=== PATIENT | male | born 1995 | race Two or more races ===

== ENCOUNTER 2023-12-28 09:31 | Emergency (ER) | payer SELFPAY ==
[2023-12-28] VITALS (7 sets, daily range): BP systolic 114–124; BP diastolic 80–89; PULSE 58–74; RESP 18; TEMP 36.7; O2SAT 98–99; BMI 28.1
--- NOTE | 2023-12-28 10:07 | CT_ITS ---
FINAL REPORT CLINICAL HISTORY: trauma FINDINGS: Axial imaging of the lumbar spine was obtained without contrast. Sagittal and coronal reformatted images were also obtained and reviewed.This study was performed with techniques to keep radiation doses as low as reasonably achievable (ALARA). Individualized dose reduction techniques using automated exposure control or adjustment of mA and/or kV according to the patient''s size were employed. There is no fracture. The vertebral alignment is normal. The disc spaces are preserved. There is no evidence of significant central canal stenosis. IMPRESSION: No fracture or acute bony abnormality identified. Authenticated and ERN
--- NOTE | 2023-12-28 10:07 | CT_ITS ---
FINAL REPORT CLINICAL HISTORY: trauma FINDINGS: A CT angiogram of the abdomen and pelvis was performed with IV contrast. Sagittal and coronal reformatted images were also obtained. This study was performed with techniques to keep radiation doses as low as reasonably achievable (ALARA). Individual dose reduction techniques using automated exposure control or adjustment of mA and/or kV according to the patient's size were employed. The abdominal aorta has an unremarkable appearance without evidence of aneurysm or dissection. The celiac axis, superior mesenteric artery and inferior mesenteric artery have an unremarkable appearance. The iliac arteries are normal. The renal arteries have an unremarkable appearance. The liver, spleen and pancreas are unremarkable. There is no evidence of renal mass or hydronephrosis. No abnormal fluid collection is seen. There is no evidence of organ injury or hemoperitoneum. IMPRESSION: Unremarkable CT angiogram of the abdomen and pelvis. No evidence of organ injury or hemoperitoneum. Authenticated and ERN
--- NOTE | 2023-12-28 10:07 | CT_ITS ---
FINAL REPORT CLINICAL HISTORY: trauma FINDINGS: Axial CT images of the thoracic spine were obtained without contrast. Sagittal and coronal reformatted images were also obtained. This study was performed with techniques to keep radiation doses as low as reasonably achievable (ALARA). Individualized dose reduction techniques using automated exposure control or adjustment of mA and/or kV according to the patient''s size were employed. There is no evidence of fracture. The vertebral alignment is normal. There is no evidence of significant canal stenosis. No paraspinous soft tissue abnormality is identified. IMPRESSION: No fracture or acute bony abnormality. No significant central canal stenosis. Authenticated and ERN
--- NOTE | 2023-12-28 10:07 | CT_ITS ---
FINAL REPORT CLINICAL HISTORY: trauma FINDINGS: Axial CT images of the cervical spine were obtained without contrast. Sagittal and coronal reformatted images were also obtained. This study was performed with techniques to keep radiation doses as low as reasonably achievable (ALARA). Individualized dose reduction techniques using automated exposure control or adjustment of mA and/or kV according to the patient''s size were employed. There is no evidence of fracture or dislocation. The bony alignment is normal. The disc spaces are preserved. There is no evidence of canal stenosis. No paraspinous soft tissue abnormality is seen. Limited images of the upper thorax are unremarkable. IMPRESSION: No fracture or acute bony abnormality identified. Authenticated and ERN
--- NOTE | 2023-12-28 10:07 | CT_ITS ---
FINAL REPORT CLINICAL HISTORY: trauma FINDINGS: Thin section axial CT images of the chest were obtained with contrast. 3D reformatted images were also obtained. This study was performed with techniques to keep radiation doses as low as reasonably achievable (ALARA). Individualized dose reduction techniques using automated exposure control or adjustment of mA and/or kV according to the patient''s size were employed. There is no evidence of pulmonary embolism. There is no evidence of thoracic aortic aneurysm or dissection. There is no evidence of mediastinal or hilar mass or adenopathy. There is no evidence of pulmonary mass or nodule. No localized inflammatory process is seen within the lungs. There is no evidence of pneumothorax. No pleural effusion is identified. No displaced rib fracture is seen. IMPRESSION: No evidence of pulmonary embolism. No evidence of traumatic injury. Authenticated and ERN
--- NOTE | 2023-12-28 10:07 | CT_ITS ---
FINAL REPORT CLINICAL HISTORY: trauma FINDINGS: Axial images of the head were obtained without contrast. Coronal reformatted images were also obtained.This study was performed with techniques to keep radiation doses as low as reasonably achievable (ALARA). Individualized dose reduction techniques using automated exposure control or adjustment of mA and/or kV according to the patient's size were employed. There is no evidence of intracranial hemorrhage or mass. The ventricular size is within normal limits. There is no evidence of shift of the midline structures. No abnormal extra axial fluid collection is identified. No skull abnormality is seen on the bone window images. IMPRESSION: No acute intracranial abnormality. Authenticated and ERN
--- NOTE | 2023-12-28 10:11 | XR_ITS ---
FINAL REPORT TECHNIQUE: 2 views left scapula CLINICAL HISTORY: pain COMPARISON: None FINDINGS: LEFT SCAPULA: 2 views of the left scapula fail to reveal any evidence of fracture or dislocation. The glenohumeral and acromioclavicular joints appear unremarkable. No radiopaque foreign body is identified. IMPRESSION: Unremarkable left scapula. Reviewed, Interpreted and Dictated by Romel Banks III, MD Transcribed by Cornelia Addison Authenticated and [facility]
--- NOTE | 2023-12-28 10:13 | PC.NURSE ---
0935 LEGAL ADVISOR USE FOR TRIAGE, TO ASSESS AND ENTIRE COMMUNICATION WITH THE PT
--- NOTE | 2023-12-28 10:14 | PC.NURSE ---
DELAY IN SCAN TIME DUE TO MULTIPLE TRAUMA ALERTS AT ONE TIME
[2023-12-28 10:16] LABS: Basophils % 0.9 % (0.1-2.0); Eosinophils # 0.1 K/mm3 (0.0-0.4); Eosinophils % 1.6 % (0.1-12.0); Hematocrit 50.2 % (42.0-52.0); Hemoglobin 15.8 g/dL (14.1-18.0); Lymphocytes # 1.6 K/mm3 (0.7-4.5); Lymphocytes % 38.5 % (10-50); Mean Corpuscular HGB Conc 31.5 g/dL (31.8-35.4); Mean Corpuscular Hemoglobin 30.4 pg (27.0-31.2); Mean Corpuscular Volume 96.8 fl (80-94); Mean Platelet Volume 8.1 fl (7.4-10.4); Monocytes # 0.3 K/mm3 (0.1-1.0); Monocytes % 6.8 % (1.7-9.3); Neutrophils # 2.2 K/mm3 (1.8-7.8); Neutrophils % 52.2 % (37.0-80.0); Platelet Count 250 K/mm3 (142-424); Red Blood Count 5.19 M/mm3 (4.60-6.20); Red Cell Distribution Width 13.9 % (11.5-17.5); White Blood Count 4.1 K/mm3 (4.8-10.8)
[2023-12-28] MEDS: MORPHINE 4MG/ML SYRINGE 4 MG IV (10:16)
[2023-12-28] MEDS: ONDANSETRON 4MG/2ML VIAL 4 MG IV (10:16)
[2023-12-28 10:19] LABS: Chloride 106 mmol/L (98-107)
[2023-12-28 10:20] LABS: Albumin Level 4.3 g/dl (3.5-5.0); Potassium 3.8 mmoL/L (3.5-5.1); Sodium 137 mmol/L (136-145)
[2023-12-28 10:22] LABS: Blood Urea Nitrogen 16 mg/dl (9-20); Creatinine Clearance Estimated 139 mL/min (50-200); Estimated Glomerular Filt Rate 99 ml/min (>60); GFR (African American) 120 ML/MIN (>60)
[2023-12-28 10:23] LABS: Alanine Aminotransferase 29 U/L (12-78); Albumin/Globulin Ratio 1.4 (1.1-1.8); Alkaline Phosphatase 86 U/L (38-126); Anion Gap 6.8 mEq/L (5-15); Aspartate Amino Transferase 34 U/L (17-59); Bilirubin,Total 0.9 mg/dl (0.2-1.3); Carbon Dioxide 28 mmol/L (22.0-30.0); Globulin 3.1 g/dL (1.3-3.2); Glucose 93 mg/dl (74-100); INR 1.02 (0.9-1.1); Prothrombin Time 11.4 seconds (10.1-12.5); Total Protein,Serum 7.4 g/dl (6.3-8.2)
--- NOTE | 2023-12-28 10:29 | PC.NURSE ---
FAST EXAM NEGATIVE
[2023-12-28] MEDS: IOPAMIDOL-370 (76%);100ML BOTTLE 80 ML IV (10:54)
[2023-12-28] MEDS: 0.9 % SODIUM CHLORIDE 50 ML VIAL IV (10:54)
--- NOTE | 2023-12-28 12:02 | PC.NURSE ---
TRAUMA ALERT CANCELLED
[2023-12-28] MEDS: TET/DIPHTH/PERT-ADULT 0.5ML SYRINGE 0.5 ML IM (12:11)
--- NOTE | 2023-12-28 12:26 | HMH.EDGENADL ---
Discharge Plan Disposition Patient Disposition: Home, Self-Care Condition: Good Prescriptions Prescriptions: New methocarbamol 500 mg tablet 500 mg PO TID PRN (Reason: pain) 3 Days Qty: 15 0RF acetaminophen [Tylenol Extra Strength] 500 mg tablet 1,000 mg PO Q6H PRN (Reason: pain) 3 Days Qty: 20 0RF ibuprofen [IBU] 600 mg tablet 600 mg PO Q6H PRN (Reason: pain) 3 Days Qty: 14 0RF bacitracin 500 unit/gram ointment 1 applic topical BID Qty: 28 0RF Referrals Follow up/Referrals: Provider,Referral, MD [Primary Care Provider] - See instructions Activity Restrictions/Add. Instructions Additional Instructions/Restrictions: You have been evaluated in the ED for your complaints. You may follow-up with your PCP in the next 3 to 5 days. Please return to ED for any new or worsening symptoms. Please take Robaxin, Tylenol and ibuprofen as needed. You may apply bacitracin or Neosporin ointment over your abrasion. Clinical Impressions Clinical Impression: Fall, Back pain, Abrasion Print Language Print Language: Moroccan Discharge ED Provider: Xavi Beaulieu Adult HPI General Stated complaint: WC 12/27 Abrasions Time Seen by Provider: 12/28/23 09:51 Mode of Arrival: Ambulatory Limitations: No Limitations Description of Symptoms (Recalled from ER Triage Doc. by RN): PT AMBULATORY TO ED, PT ABOUT 10 FEET IN [employer]ING TOBACCO, BARN COLLAPSED. FALL FROM ABOUT 10 FEET. C/O LEFT ARM AND LEFT SIDED RIB PAIN. BRUISING AND ABRASIONS NOTED. PT DENIES NECK PAIN, PLACED IN C-COLLAR. [employer] ADVISER USED FOR ALL INFORMATION History of Present Illness HPI narrative: 28-year-old male with no pertinent past medical history presents today as a trauma after having anywhere from a 10-20ft fall after a tobacco barn collapsed. He fell onto his left side and complains of pain in that area. He also complains of thoracic pain. Denies neck pain. Denies any chest pain, abdominal pain, head injuries, loss of consciousness, nausea, vomiting, extremity pain or any other associated symptoms. He has been ambulatory since the event. Tetanus is not up-to-date. No further complaints Related Data Previous Rx's ?Medication ?Instructions ?Recorded acetaminophen 500 mg tablet 1,000 mg (2 x 500 mg) PO Q6H PRN 12/28/23 (Tylenol Extra Strength) pain 3 days #20 tabs bacitracin 500 unit/gram topical 1 applic topical BID #28 grams 12/28/23 ointment ibuprofen 600 mg tablet (IBU) 600 mg PO Q6H PRN pain 3 days #14 12/28/23 tabs methocarbamol 500 mg tablet 500 mg PO TID PRN pain 3 days #15 12/28/23 tabs Allergies Allergy/AdvReac Type Severity Reaction Status Date / Time No Known Allergies Allergy Verified 12/28/23 09:44 [facility] Disclaimer: The information contained in this section may have been updated after the patient was seen, as this information can be updated by other users. Social History Smoking Status: Never smoker alcohol intake: never current occupational status: employed Travel in the last 8 weeks: None ROS Obtained: Yes All systems reviewed & no additional complaints except as documented Physical Exam General General appearance: alert and in no apparent distress Head Head exam: atraumatic and normocephalic Eye Eye exam: Present normal appearance, PERRL and EOMI ENT ENT exam: Present normal oropharynx and mucous membranes moist Neck Neck exam: Present full ROM; Absent tenderness or meningismus Chest Chest inspection: Present normal inspection; Absent tenderness Respiratory Respiratory exam: Absent respiratory distress, wheezes, stridor or accessory muscle use Cardiovascular Cardiovascular exam: Present regular rate and normal rhythm Abdominal Exam Abdominal exam: Present soft and other (Large linear abrasion on the left lateral aspect of the abdomen. No active bleeding.); Absent distention, tenderness, guarding, rebound or rigidity Back Exam Back exam: Present tenderness (Midthoracic tenderness to palpation.) Neurological Exam Neurological exam: Present alert, oriented X3 and CN II-XII intact; Absent motor sensory deficit Psychiatric Psychiatric exam: Present normal affect and normal mood Skin Skin exam: Present warm and dry Medical Decision Making Medical Records Medical records reviewed: Yes I reviewed the patient's medical records. Kiran Inquiry Pt receiving controlled substance: No Kiran was queried for this patient: No Vital Signs: 12/28/23 09:35 12/28/23 10:00 12/28/23 10:30 Temperature 98.0 F Temperature Source Oral Pulse Rate 66 60 Pulse Rate [Apical] 74 Respiratory Rate 18 18 Blood Pressure 115/82 124/89 Blood Pressure [Right Arm] 122/80 Blood Pressure Mean 89 Blood Pressure Mean [Right Arm] 94 Blood Pressure Source [Right Arm] Manual Cuff/ Auscultation Blood Pressure Position [Right Arm] Sitting 02 Sat by Pulse Oximetry 99 98 99 Oxygen Delivery Method Room Air Room Air Room Air 12/28/23 11:30 12/28/23 12:00 12/28/23 12:15 Temperature Temperature Source Pulse Rate 58 L 58 L 58 L Pulse Rate [Apical] Respiratory Rate Blood Pressure 116/80 114/82 114/82 Blood Pressure [Right Arm] Blood Pressure Mean 89 91 Blood Pressure Mean [Right Arm] Blood Pressure Source [Right Arm] Blood Pressure Position [Right Arm] 02 Sat by Pulse Oximetry 99 99 99 Oxygen Delivery Method Room Air Room Air Lab Data Lab Results 12/28/23 09:45: WBC 4.1 L, RBC 5.19, Hgb 15.8, Hct 50.2, MCV 96.8 H, MCH 30.4, MCHC 31.5 L, RDW 13.9, Plt Count 250, MPV 8.1, Neut % (Auto) 52.2, Lymph % (Auto) 38.5, [place] % (Auto) 6.8, Eos % (Auto) 1.6, Baso % (Auto) 0.9, Neut # (Auto) 2.2, Lymph # (Auto) 1.6, [place] # (Auto) 0.3, Eos # (Auto) 0.1, Baso # (Auto) 0.0, PT 11.4, INR 1.02, Sodium 137, Potassium 3.8, Chloride 106, Carbon Dioxide 28, Anion Gap 6.8, BUN 16, Creatinine 0.90, Estimated Creat Clear 139, Estimated GFR 99, Est GFR ( Amer) 120, Glucose 93, Calcium 9.0, Total Bilirubin 0.9, AST 34, ALT 29, Alkaline Phosphatase 86, Total Protein 7.4, Albumin 4.3, Globulin 3.1, Albumin/Globulin Ratio 1.4 12/28/23 09:45 12/28/23 09:45 Orders (Tests/Meds): ED MEDICATIONS Generic Name Dose Route Start Last Admin Trade Name Freq PRN Reason Stop Dose Admin Sodium Chloride 10 ml 12/28/23 10:53 Sodium Chloride 0.9% 10ml Syr (Rad Only) IV 01/27/24 10:52 NEEDED PRN Maintain IV Site Discontinued Medications Generic Name Dose Route Start Last Admin Trade Name Alessandro PRN Reason Stop Dose Admin Iopamidol 80 ml 12/28/23 10:53 12/28/23 10:54 Iopamidol-370 (76%);100ml Bottle IV 12/28/23 10:54 80 ml ONCE ONE Administration Morphine Sulfate 4 mg 12/28/23 10:11 12/28/23 10:16 Morphine 4mg/Ml Syringe IV 12/28/23 10:12 4 mg ONCE ONE Administration Ondansetron HCl 4 mg 12/28/23 10:11 12/28/23 10:16 Ondansetron 4mg/2ml Vial IV 12/28/23 10:12 4 mg ONCE ONE Administration Sodium Chloride 50 ml 12/28/23 10:53 12/28/23 10:54 0.9 % Sodium Chloride 50 Ml Vial IV 12/28/23 10:54 50 ml ONCE ONE Administration Tetanus/Diphtheria Toxoids 0.5 ml 12/28/23 10:36 12/28/23 12:08 Tetanus-Diphth Toxoid, Adult 0.5ml Syr IM 12/28/23 10:37 Not Given .ONCE ONE Tetanus/Reduced Diphtheria/Acell Pertussis 0.5 ml 12/28/23 12:07 12/28/23 12:11 Tet/Diphth/Pert-Adult 0.5ml Syringe IM 12/28/23 12:08 0.5 ml .ONCE ONE Administration ORDERS Category Date Time Status CT angio abdomen pelvis Stat Cat Scan 12/28/23 10:[address] cervical spine wo con Stat Cat Scan 12/28/23 10:[address] head/brain wo con Stat Cat Scan 12/28/23 10:[address] lumbar spine wo con Stat Cat Scan 12/28/23 10:[address] thoracic spine wo con Stat Cat Scan 12/28/23 10:07 Completed CTA Chest [CT angio chest - dissection] Stat Cat Scan 12/28/23 10:07 Completed POCUS Point of Care (ER Only) Stat Exams 12/28/23 09:44 Completed Scapula XR left [XR scapula LT] Stat Exams 12/28/23 10:11 Completed Complete Blood Count Auto Diff Stat Lab 12/28/23 09:45 Completed Comprehensive Metabolic Panel Stat Lab 12/28/23 09:45 Completed PT/INR [Prothrombin Time INR] Stat Lab 12/28/23 09:45 Completed Medical Decision Narrative: 28-year-old male with no pertinent past medical history presents today as a trauma after having anywhere from a 10-20ft fall after a tobacco barn collapsed. He fell onto his left side and complains of pain in that area. He also complains of thoracic pain. Denies neck pain. Denies any chest pain, abdominal pain, head injuries, loss of consciousness, nausea, vomiting, extremity pain or any other associated symptoms. He has been ambulatory since the event. Tetanus is not up-to-date. On assessment the patient was hemodynamically stable and in no acute distress. Afebrile. Chest clear to auscultation bilaterally. abdomen soft nondistended nontender to palpation. No extremity tenderness. No external signs of trauma on the head. He does have a large linear abrasion over the lateral aspect of the abdomen on the left. He did have midline chest palpation of the thoracic spine. No midline tenderness of the C or L-spine. Other physical exam finds unremarkable. He has been able to ambulate. Differential diagnoses include but not limited to spinal fracture, intracranial abnormality, intrathoracic abnormality, rib fracture, among others Lab work today has been nonactionable. CT imaging of the head and CTA head/neck are without any acute abnormalities. CTA chest and CT abdomen pelvis also unremarkable. Chest and CT abdomen pelvis also unremarkable. CT of the C/T/L-spine without any abnormalities. On reassessment the patient remains hemodynamically stable and in no acute distress. Pain is controlled at this time. discussed with patient ED work-up and results and current plan to discharge. Will send home with Kamaljit. provided with return to ED precautions and instructions concerning PCP follow-up. Patient verbalized understanding and agreement with plan. Subsequently discharged hemodynamically stable and in no acute distress. Critical Care Critical Care Time Critical Care Time: No
== END 2023-12-28 12:45 | disposition home or self-care (01) ==
PROVIDERS: Emergency Provider Emergency Medicine
DX: M54.6 Pain in thoracic spine (principal); S30.811A Abrasion of abdominal wall, initial encounter; W13.2XXA Fall from, out of or through roof, initial encounter; Z23 Encounter for immunization
CPT/HCPCS: 70450; 71275; 72125; 72128; 72131; 73010; 74174; 80053; 85025; 85610; 90471; 90715; 96374; 96375; 99285; J2270; J2405; Q9967